=== PATIENT | female | born 1960 | race Caucasian/White ===

== ENCOUNTER → 2016-05-26 | Outpatient (CLI) | payer OTHER | END | disposition home or self-care (01) | LOC: CFH 14:04 | PROVIDERS: ATTEND Nurse Practitioner Primary Care | DX: R05 Cough (principal); J30.9 Allergic rhinitis, unspecified; E03.9 Hypothyroidism, unspecified; I10 Essential (primary) hypertension; I49.9 Cardiac arrhythmia, unspecified; E55.9 Vitamin D deficiency, unspecified; E78.1 Pure hyperglyceridemia; F06.4 Anxiety disorder due to known physiological condition; R53.83 Other fatigue | CPT/HCPCS: 71020 ==

== ENCOUNTER → 2017-04-19 | Outpatient (CLI) | payer OTHER ==
[~2017-04-19] MED LIST: ASCO500T8 PO; ATEN50TA41 PO; BIOT1TAB2 PO; CALC600T4 PO; ESTR0.5T PO; FLAX1CAP PO; LEVO150T5 PO; LYSI100010 PO; MEDR10TA3 PO; MULT1TAB60 PO; OMEP20TA62 PO; PRAS50CA PO; VITAMIN A PO; [UNRECOGNIZED DRUG - OTHER] PO; [UNRECOGNIZED DRUG - OTHER] PO; [UNRECOGNIZED DRUG - OTHER] PO
== END ==
LOC: STAR 14:07
PROVIDERS: ATTEND Obstetrics & Gynecology
DX: Z02.9 Encounter for administrative examinations, unspecified (principal)

== ENCOUNTER 2017-05-11 10:25 | Day surgery (SDC) | payer OTHER ==
[~2017-05-11] VITALS: Ht 170.2 cm; Wt 79.4 kg
[2017-05-11] MEDS ORDERED: MIDAZOLAM 1 MG/ML, 2ML ONE (10:41)
[2017-05-11] MEDS ORDERED: FENTANYL PF 250 MCG/5ML ONE (10:41)
[2017-05-11] MEDS ORDERED: FENTANYL PF 100 MCG/2ML ONE ×2 (10:42→14:18)
[2017-05-11 10:51] VITALS: BP 138/79
[2017-05-11] MEDS ORDERED: LACTATED RINGERS 1,000 ML IV SCH (10:59)
[2017-05-11] MEDS ORDERED: LIDOCAINE-MPF 1%, 2ML INFIL ONE (11:00)
[2017-05-11] MEDS ORDERED: BUPIVACAINE/PF 0.25% ONE (11:46)
[2017-05-11] MEDS ORDERED: SILVER NITRATE STICK TP ONE (11:47)
[2017-05-11] MEDS ORDERED: EPINEPHRINE 1 MG/ML, 1ML ONE (11:47)
[2017-05-11] MEDS ORDERED: ACETAMINOPHEN 325 MG TABLET PO PRN (12:30)
[2017-05-11] MEDS ORDERED: ONDANSETRON 2MG/ML, 2ML IVPush PRN (12:30)
[2017-05-11] MEDS ORDERED: OXYcodone 5 MG/5 ML ORAL.SOL UDC PO PRN (12:30)
[2017-05-11] MEDS ORDERED: FENTANYL PF 100 MCG/2ML IV PRN (12:30)
[2017-05-11] MEDS ORDERED: morphine SULFATE 10 MG/ML, 1ML IV PRN (12:30)
[2017-05-11] MEDS ORDERED: HYDROcodone/APAP 7.5-325MG/15ML UDC PO PRN (12:30)
[2017-05-11] MEDS ORDERED: PROMETHAZINE 25 MG/ML, 1ML IV PRN (12:30)
[2017-05-11] MEDS ORDERED: LIDOCAINE GEL 2%, 5ML ONE (12:58)
[2017-05-11] MEDS ORDERED: DEXAMETHASONE 4 MG/ML, 5ML ONE (13:03)
[2017-05-11] MEDS ORDERED: KETOROLAC 30 MG/1 ML ONE (13:03)
[2017-05-11] MEDS ORDERED: PROPOFOL 10 MG/ML, 20ML ONE (13:03)
[2017-05-11] MEDS ORDERED: ONDANSETRON 2MG/ML, 2ML ONE (13:03)
[2017-05-11] MEDS ORDERED: ACETAMINOPHEN 650 MG/20.3 ML UDC ONE (14:03)
[2017-05-11] MEDS ORDERED: OXYcodone 5 MG/5 ML ORAL.SOL UDC ONE (14:03)
== END 2017-05-11 15:50 ==
LOC: OUT 10:25
PROVIDERS: ATTEND Obstetrics & Gynecology
DX: N85.01 Benign endometrial hyperplasia (principal); N92.4 Excessive bleeding in the premenopausal period; R87.612 Low grade squamous intraepithelial lesion on cytologic smear of cervix (LGSIL); N92.5 Other specified irregular menstruation; Z88.0 Allergy status to penicillin; Z79.899 Other long term (current) drug therapy; Z98.890 Other specified postprocedural states; Z80.42 Family history of malignant neoplasm of prostate; Z87.891 Personal history of nicotine dependence; Z91.040 Latex allergy status
CPT/HCPCS: 36415; 57455; 58558; 86850; 86900; 88305; J0171; J1100; J1885; J2250; J2405; J2704; J3010; J3490

== ENCOUNTER → 2017-08-24 | Outpatient (CLI) | payer OTHER ==
[2017-08-24 12:03] LABS: ANION GAP 7 mmol/L (5-15); CHLORIDE 107 mmol/L (98-107)
[2017-08-24 12:10] LABS: ALANINE AMINOTRANSFERASE 41 U/L (12-78); ALKALINE PHOSPHATASE 49 U/L (45-117); BILIRUBIN,TOTAL 0.7 mg/dL (0.2-1.0); CREATININE 0.88 mg/dL (0.55-1.02); TOTAL PROTEIN 7.2 g/dL (6.4-8.2)
[2017-08-24 12:12] LABS: BASOPHILS # (AUTO) 0.01 x10^3/uL (0-0.1); BASOPHILS % (AUTO) 0 % (0-1); EOSINOPHILS # (AUTO) 0.05 x10^3/uL (0-0.4); EOSINOPHILS % (AUTO) 1 % (1-7); LYMPHOCYTES # (AUTO) 1.47 x10^3/uL (1-3.4); LYMPHOCYTES % (AUTO) 32 % (22-44); MD NO; MEAN CORPUSCULAR HEMOGLOBIN 33.9 pg (27.0-34.8); MEAN CORPUSCULAR HGB CONC 33.6 g/dL (32.4-35.8); MEAN CORPUSCULAR VOLUME 100.9 fL (80-100); MEAN PLATELET VOLUME 8.4 fL (7.4-10.4); MONOCYTES # (AUTO) 0.52 x10^3/uL (0.2-0.8); MONOCYTES % (AUTO) 11 % (2-9); NEUTROPHILS # (AUTO) 2.51 x10^3/uL (1.8-6.8); NEUTROPHILS % (AUTO) 55 % (42-75); PLATELET COUNT 200 x10^3/uL (130-400); RED BLOOD COUNT 4.21 x10^6/uL (3.82-5.3); RED CELL DISTRIBUTION WIDTH 12.8 % (9.6-15.2)
[2017-08-24 12:15] LABS: MICROSCOPIC AUTO
[2017-08-24 12:17] LABS: CULTURE INDICATED? NO
== END | disposition home or self-care (01) ==
LOC: STAR 10:42
PROVIDERS: ATTEND Obstetrics & Gynecology
DX: Z01.818 Encounter for other preprocedural examination (principal); N85.01 Benign endometrial hyperplasia
CPT/HCPCS: 36415; 80053; 81001; 84702; 85025

== ENCOUNTER 2017-09-08 05:45 | Day surgery (SDC) | payer OTHER ==
[~2017-09-08] VITALS: Ht 170.2 cm; Wt 78.5 kg
[2017-09-08] MEDS ORDERED: LACTATED RINGERS 1,000 ML IV SCH (06:05)
[2017-09-08 06:07] VITALS: BP 133/84
[2017-09-08] MEDS ORDERED: FLUORESCEIN SODIUM 500 MG/5 ML ONE (07:16)
[2017-09-08] MEDS ORDERED: MIDAZOLAM 1 MG/ML, 2ML ONE (07:16)
[2017-09-08] MEDS ORDERED: BUPIVACAINE/PF-EPI 0.25% 1:200K ONE (07:16)
[2017-09-08] MEDS ORDERED: FENTANYL PF 250 MCG/5ML ONE (07:17)
[2017-09-08] MEDS ORDERED: DEXAMETHASONE 4 MG/ML, 5ML ONE (07:30)
[2017-09-08] MEDS ORDERED: CEFAZOLIN 1,000 MG ONE ×2 (07:30→08:36)
[2017-09-08] MEDS ORDERED: LIDOCAINE-MPF 2% ,5ML ONE (07:30)
[2017-09-08] MEDS ORDERED: LIDOCAINE 4%, 4 ML SYR/CANN TP ONE (07:30)
[2017-09-08] MEDS ORDERED: EPHEDRINE 50 MG/ML, 1ML ONE (07:30)
[2017-09-08] MEDS ORDERED: BUPIVACAINE/PF-EPI 0.25% 1:200K INFIL ONE (08:01)
[2017-09-08] MEDS ORDERED: MEPERIDINE/PF 25MG/0.5ML IVPush PRN (08:30)
[2017-09-08] MEDS ORDERED: PROMETHAZINE 25 MG/ML, 1ML IV PRN (08:30)
[2017-09-08] MEDS ORDERED: MORPHINE SULFATE 4 MG/ML, 1ML IVPush PRN (08:30)
[2017-09-08] MEDS ORDERED: ONDANSETRON ODT 8 MG PO PRN (08:30)
[2017-09-08] MEDS ORDERED: FENTANYL PF 100 MCG/2ML IV PRN (08:30)
[2017-09-08] MEDS ORDERED: ACETAMINOPHEN 325 MG TABLET PO PRN (08:30)
[2017-09-08] MEDS ORDERED: HYDROmorphone 1 MG/ML, 1ML IV PRN (08:30)
[2017-09-08] MEDS ORDERED: DEXAMETHASONE 4 MG/ML, 1ML ONE (08:36)
[2017-09-08] MEDS ORDERED: NEOSTIGMINE 1 MG/ML, 10ML ONE (08:36)
[2017-09-08] MEDS ORDERED: ONDANSETRON 2MG/ML, 2ML ONE (08:36)
[2017-09-08] MEDS ORDERED: PROPOFOL 10 MG/ML, 20ML ONE (08:36)
[2017-09-08] MEDS ORDERED: GLYCOPYRROLATE 0.2MG/1ML, 5ML ONE (08:36)
[2017-09-08] MEDS ORDERED: ROCURONIUM 10MG/ML,5ML ONE (08:36)
[2017-09-08] MEDS ORDERED: SUCCINYLCHOLINE 20 MG/ML, 10ML ONE (08:36)
[2017-09-08] MEDS ORDERED: OXYcodone 5 MG/5 ML ORAL.SOL UDC ONE (09:08)
[2017-09-08] MEDS ORDERED: ACETAMINOPHEN 650 MG/20.3 ML UDC ONE (09:08)
[2017-09-08] MEDS ORDERED: KETOROLAC 30 MG/1 ML ONE (09:08)
[2017-09-08] MEDS ORDERED: FENTANYL PF 100 MCG/2ML ONE (09:08)
[2017-09-08] MEDS: OXYcodone 5 MG/5 ML ORAL.SOL UDC PO PRN ×2 (09:17→13:08)
[2017-09-08] MEDS ORDERED: KETOROLAC 30 MG/1 ML IVPush PRN (09:30)
== END 2017-09-08 13:55 ==
LOC: OUT 05:45
PROVIDERS: ATTEND Obstetrics & Gynecology
DX: D25.1 Intramural leiomyoma of uterus (principal); N85.2 Hypertrophy of uterus; N84.0 Polyp of corpus uteri; E03.9 Hypothyroidism, unspecified; Z98.890 Other specified postprocedural states; Z88.0 Allergy status to penicillin
CPT/HCPCS: 36415; 58552; 86850; 86900; 88307; J0330; J0690; J1100; J1885; J2250; J2405; J2704; J2710; J3010; J3490; J7120